=== PATIENT | male | born 1990 | race Caucasian/White ===

== ENCOUNTER → 2018-05-31 | Outpatient (CLI) | payer OTHER | LOC: MHCPAIN 11:58 | DX: G89.29 Other chronic pain (principal); M47.817 Spondylosis without myelopathy or radiculopathy, lumbosacral region; M54.16 Radiculopathy, lumbar region; M53.3 Sacrococcygeal disorders, not elsewhere classified | CPT/HCPCS: G0463 ==

== ENCOUNTER 2021-05-10 22:10 | Emergency (ER) | payer OTHER ==
[2021-05-10 22:11] VITALS: TEMP 97.3
[2021-05-11 00:48] VITALS: BP 126/65; PULSE 94
== END 2021-05-11 00:48 | disposition home or self-care (01) ==
LOC: COL.ER 22:10
DX: S43.005A Unspecified dislocation of left shoulder joint, initial encounter (principal); W01.0XXA Fall on same level from slipping, tripping and stumbling without subsequent striking against object, initial encounter
CPT/HCPCS: J2060; J3010